=== PATIENT | female | born 1940 | race Two or more races ===

== ENCOUNTER 2018-09-16 17:36 | Emergency (ER) | payer MEDICARE, MEDICAID ==
[~2018-09-16] VITALS: Ht 154.9 cm; Wt 49.9 kg
[2018-09-16 18:28] LABS: Basophils # (auto) 0 uL; Basophils % (auto) 0.3 % (0.0-2.0); Eosinophils # (auto) 0.1 uL; Eosinophils % (auto) 0.8 % (0.0-7.0); Hemoglobin 12.3 g/dL (12.2-16.2); Lymphocytes % (auto) 12.8 % (10.0-50.0); Mean Corpuscular Hemoglobin 29.1 pg (28.0-32.0); Mean Corpuscular Hgb Conc. 33.3 g/dL (32.0-36.0); Mean Corpuscular Volume 87.5 fL (80.0-100.0); Monocytes # (auto) 0.6 uL; Monocytes % (auto) 7.9 % (0.0-12.0); Neutrophils % (auto) 78.2 % (37.0-80.0); Platelet Count (auto) 312 10^3/uL (140-450); Red Blood Cells 4.23 10^6/uL (4.0-5.20); Red Cell Distribution Width 14.2 % (11.8-14.3); White Blood Cell 7.7 10^3/uL (4.4-10.8)
[2018-09-16 18:42] LABS: Alanine Aminotransferase 14 U/L (13-56); Albumin 3.1 g/dL (3.4-5.0); Anion Gap 7 (5-15); Aspartate Aminotransferase 12 U/L (15-37); BUN/Creatinine Ratio 45.8; Blood Urea Nitrogen 33 mg/dL (7-18); Calcium 8.5 mg/dL (8.5-10.1); Carbon Dioxide 29 mmol/L (21-32); Chloride 93 mmol/L (98-107); GFR African American 100 mL/min; GFR Non-African American 83 mL/min; Glucose 76 mg/dL (74-106); Potassium 4.2 mmol/L (3.5-5.1); Sodium 129 mmol/L (136-145)
[2018-09-16 18:47] LABS: Alkaline Phosphatase 72 U/L (45-117); Bilirubin, Total 0.3 mg/dL (0.2-1.0); Total Protein 7.1 g/dL (6.4-8.2)
[2018-09-16] MEDS ORDERED: SODIUM CHLORIDE 0.9% 1,000 ML IV ONE (20:07)
[2018-09-16 22:00] VITALS: BP 136/62
== END 2018-09-16 22:53 | disposition home or self-care (01) ==
LOC: ER 17:47
DX: J40 Bronchitis, not specified as acute or chronic (principal); E87.1 Hypo-osmolality and hyponatremia; E11.9 Type 2 diabetes mellitus without complications; I10 Essential (primary) hypertension; Z90.49 Acquired absence of other specified parts of digestive tract
CPT/HCPCS: 36415; 71045; 80053; 83605; 83880; 84484; 85025; 87040; 93005; 99284; J7030

== ENCOUNTER 2018-10-03 20:36 | Inpatient (IN) | payer OTHER, MEDICAID, MEDICARE | END 2018-10-04 16:00 | disposition home or self-care (01) | LOC: ER 20:36 → OVERFLOW 10-04 02:55 → CENTRAL 10-04 04:37 | DX: C34.81 Malignant neoplasm of overlapping sites of right bronchus and lung (principal); E11.649 Type 2 diabetes mellitus with hypoglycemia without coma; R07.9 Chest pain, unspecified; R91.8 Other nonspecific abnormal finding of lung field; I10 Essential (primary) hypertension ==